=== PATIENT | male | born 1990 | race Two or more races ===

== ENCOUNTER → 2021-11-27 | Emergency (ER) | payer OTHER ==
[~2021-11-27] VITALS: Ht 175.3 cm; Wt 123.4 kg
== END | disposition home or self-care (01) ==
LOC: ER 12:15
DX: S99.912A Unspecified injury of left ankle, initial encounter (principal); W18.30XA Fall on same level, unspecified, initial encounter; Y93.9 Activity, unspecified; Y92.019 Unspecified place in single-family (private) house as the place of occurrence of the external cause; M79.605 Pain in left leg